=== PATIENT | male | born 1950 | race Caucasian/White ===

== ENCOUNTER 2023-12-16 13:33 | Observation (INO) ==
[2023-12-16] MEDS ORDERED: IOPAMIDOL 100 ML BOTTLE IV ONE (13:34)
[2023-12-16 14:21] LABS: Basophils # (Auto) 0.08 K/mcL (0.00-0.30); Basophils % (Auto) 0.7 % (0.0-2.0); Eosinophils % (Auto) 2.6 % (0.0-7.0); Hematocrit 48.8 % (40.1-51.0); Hemoglobin 15.6 g/dL (13.7-17.5); Lymphocytes % (Auto) 18.1 % (15.5-49.0); Mean Cell Volume 99.2 fL (80.0-100.0); Monocytes # (Auto) 1.15 K/mcL (0.10-0.90); Monocytes % (Auto) 9.9 % (1.0-12.0); Neutrophils % (Auto) 67.8 % (38.0-78.0); Platelet Count 321 K/mcL (140-440); RBC 4.92 M/mcL (4.63-6.08); Red Cell Distribution Width 13.4 % (11.5-14.5); WBC 11.6 K/mcL (4.5-11.0)
[2023-12-16 14:45] LABS: ALT/SGPT 35 U/L (<40); AST/SGOT 36 U/L (<40); Albumin 4.5 gm/dL (3.2-5.2); Albumin/Globulin Ratio 1.2 (1.0-2.3); Alkaline Phosphatase 68 U/L (39-117); Bilirubin,Total 0.3 mg/dL (0.1-1.0); Blood Urea Nitrogen 21 mg/dL (8-23); Calcium 10.1 mg/dL (8.6-10.4); Carbon Dioxide 25 mmol/L (22-30); Chloride 99 mmol/L (96-108); Globulin 3.7 gm/dL (2.2-3.7); Glomerular Filtration Rate 55; Glucose 112 mg/dL (70-105); Potassium 4.4 mmol/L (3.3-5.1); Sodium 137 mmol/L (133-145); Thyroid Stimulating Hormone 2.03 uIU/mL (0.27-5.01)
[2023-12-16 15:13] LABS: Free T4 (Free Thyroxine) 1.11 ng/dL (0.93-1.70)
[2023-12-16] MEDS: DILTIAZEM 25 MG/5 ML VIAL IV ONE (16:06)
[2023-12-16] MEDS: DILTIAZEM 30 MG TABLET PO ONE (16:35)
[2023-12-16] MEDS: DILTIAZEM 125 MG in DEXTROSE 5% IN WATER 100 ML IV SCH (17:42)
[2023-12-16] MEDS: APIXABAN 5 MG TABLET PO ONE (17:43)
[2023-12-16] MEDS ORDERED: LACTULOSE 20 GM/30 ML ORAL.SOL PO PRN (18:46)
[2023-12-16] MEDS ORDERED: SENNOSIDES 1 TABLET PO PRN (18:46)
[2023-12-16] MEDS ORDERED: IPRATROPIUM 2.5 ML AMPUL.NEB NEB PRN (18:46)
[2023-12-16] MEDS: ALBUTEROL SULFATE 2.5 MG/3 ML NEBULIZER NEB SCH (19:26)
[2023-12-16] MEDS: ALBUTEROL SULFATE 2.5 MG/3 ML NEBULIZER ONE (19:32)
[2023-12-16] MEDS: ACETAMINOPHEN 325 MG TABLET PO PRN (20:27)
[2023-12-16] MEDS: APIXABAN 5 MG TABLET PO SCH (20:27)
[2023-12-16] MEDS: FISH OIL 1,000 MG CAPSULE PO SCH (20:27)
[2023-12-16] MEDS: 0.9 % SODIUM CHLORIDE 10 ML SYRINGE IV SCH (20:28)
[2023-12-17] MEDS: oxyCODONE/APAP 5/325MG TABLET PO PRN (01:47)
[2023-12-17 06:30] LABS: Blood Urea Nitrogen 17 mg/dL (8-23); Calcium 9.1 mg/dL (8.6-10.4); Carbon Dioxide 28 mmol/L (22-30); Chloride 99 mmol/L (96-108); Glomerular Filtration Rate 67; Glucose 131 mg/dL (70-105); Potassium 3.9 mmol/L (3.3-5.1); Sodium 135 mmol/L (133-145)
[2023-12-17 06:31] LABS: Basophils # (Auto) 0.07 K/mcL (0.00-0.30); Basophils % (Auto) 0.8 % (0.0-2.0); Eosinophils # (Auto) 0.49 K/mcL (0.00-0.70); Eosinophils % (Auto) 5.8 % (0.0-7.0); Hematocrit 42.2 % (40.1-51.0); Hemoglobin 13.6 g/dL (13.7-17.5); Lymphocytes # (Auto) 1.68 K/mcL (1.50-4.80); Lymphocytes % (Auto) 19.9 % (15.5-49.0); Mean Cell Volume 99.3 fL (80.0-100.0); Mean Corpuscular HGB Conc 32.2 g/dL (31.0-36.0); Monocytes # (Auto) 0.85 K/mcL (0.10-0.90); Monocytes % (Auto) 10.1 % (1.0-12.0); Neutrophils % (Auto) 62.1 % (38.0-78.0); Platelet Count 242 K/mcL (140-440); RBC 4.25 M/mcL (4.63-6.08); Red Cell Distribution Width 13.4 % (11.5-14.5); WBC 8.4 K/mcL (4.5-11.0)
[2023-12-17] MEDS: ONDANSETRON 4 MG/2 ML VIAL IV PRN (08:44)
[2023-12-17] MEDS: Fluticasone-Umeclidin-Vilanter [Trelegy Ellipta] Inhaler INH SCH (09:24)
[2023-12-23] MEDS ORDERED: ERGOCALCIFEROL (VITAMIN D2) 50,000 UNIT CAPSULE PO SCH (09:00)
== END 2023-12-17 12:25 | disposition home or self-care (01) ==
LOC: ICU 13:33 → ED 13:33 → ICU 19:01
PROVIDERS: ADMIT Student in an Organized Health Care Education/Training Program; ATTEND Student in an Organized Health Care Education/Training Program